=== PATIENT | female | born 1955 | race Caucasian/White ===

== ENCOUNTER → 2020-08-05 08:00 | Outpatient (CLI) | payer MEDICARE, OTHER, SELFPAY | PROVIDERS: Referring Provider Physician Assistant; Visit Provider Physician Assistant | DX: R47.02 Dysphasia (principal); R63.4 Abnormal weight loss; Z53.9 Procedure and treatment not carried out, unspecified reason ==

== ENCOUNTER → 2020-08-08 10:02 | Outpatient (CLI) | payer MEDICARE, OTHER, SELFPAY ==
--- NOTE | 2020-08-08 10:04 | DI.RAD.S_ITS ---
PROCEDURE: FL BARIUM SWALLOW W SPEECH INDICATIONS: DYSPHASIA COMPARISON: None. TECHNIQUE: Examination was conducted in conjunction with speech pathology per standard protocol. In the lateral projection, filming was performed of the patient swallowing. AP projection filming may also be performed with patient swallowing. COMPARISON: FINDINGS: Function: The oral preparatory phase appears normal, with proper containment. The subsequent oral propulsive phase, pharyngeal phase, and esophageal phase of swallowing also appear normal with all proffered substances. No laryngotracheal penetration or aspiration. Pooling was noted in the vallecula and piriform sinuses which was not completely cleared with repeat swallows. Morphology: No cricopharyngeal bar is identified. No cervical esophageal webs. No Zenker's diverticulum. No strictures. IMPRESSION: 1. Bilateral vallecula and piriform sinus pooling not completely cleared with Cristi swallows. 2. No laryngotracheal penetration or aspiration. Dictated by: Lisy Artis MD, PhD on 08/08/2020 at 12:14 Approved by: Lisy Artis MD, PhD on 08/08/2020 at 12:15
--- NOTE | 2020-08-08 16:11 | ST.SWALLOW ---
Visit Care Team Role Provider Type Carolyn Duran PA-C Attending Provider Non-Staff Primary Care Provider Referring Provider Specialty: Nursing [address]: [address] [place] [address], [id number] Email: Modified Barium Swallow Study FURNISHINGS CONSERVATOR Modified Barium Swallow Study Start: 08/08/20 14:20 Freq: Status: Active Protocol: Document 08/08/20 14:20 LL (Rec: 08/08/20 14:25 LL [id number]) Modified Barium Swallow Study Total Time Visit Start Time 10:30 Visit Stop Time 11:10 Total Visit Minutes 40 Visit Information Insurance Information [facility] Referral Referring Physician Carolyn Duran PA-C Reason for Referral Dysphagia and weight loss Setting Setting Outpatient Care Patient Information Identification Type Name,Date of ,ID Card Patient History Tata Watson is a 65-year -old female, who was seen for an outpatient Modified Barium Swallow Study (MBSS) per [facility] order due to concerns for dysphagia. Unable to obtain detailed medical history prior to exam. Per patient report, PMHx significant for GERD / reflux, weight loss, anxiety, and dysphagia. Patient denied any respiratory concerns, head /neck cancer, head/neck surgery, or neurological disorder / disease. Patient reported history of GERD / reflux with corrective surgery (unable to identify specific surgery) around 15 years ago. Patient reported difficulty swallowing pills, low PO intake, weight loss (20 lbs in less than 2 months), and occasional coughing / throat clearing with PO. Patient reported that she currently consumes a modified diet to ease swallowing difficulty (e. g., mechanical soft diet). Patient presented with a strained vocal quality and reported that she received speech therapy (date unknown) to improve vocal quality. Patient reported decreased thyroid levels over the last several months as well. Subjective Observations Patient arrived on time and unaccompanied for this study. Patient alert, oriented x 4, and agreeable to participate in MBSS this care date. Patient overtly anxious and reported increased anxiety over the last several months, requiring medication to alleviate symptoms. Patient Positioning Position View Lat-A/P Imaging Lateral View Textures Administered Trials Presented Thin Liquid via Cup,Thin Liquid via Straw,[place] Liquid via Cup,Honey Liquid via Spoon,Pudding Thick Liquid via Spoon,Dysphagia Advanced Textures,Regular Textures Oral Phase Source: MBSIMP (TM) (C) Bolus Specific Scoring Grid Lip Closure WFL Tongue Control During Bolus Hold WFL Bolus Prep/Mastication WFL Bolus Transport/Lingual Motion WFL A/P Lingual Propulsion Delay No Oral Residue WFL Residue Clearing WFL Nasal Regurgitation No Additional Oral Phase Observations Adequate labial seal with no anterior loss or difficulty with labial acceptance visualized across all consistencies. Adequate oral bolus containment visualized with 10mL of thin liquid barium with bolus hold. Trace oral residue of contrast observed post-swallow with thin liquids. Minimal oral residue with thicker bolus consistencies, which cleared with thin liquid wash. One occurrence of regurgitation with reswallow of remaining vallecular residue post- swallow with regular solid trial. Adequate mastication pattern visualized with dysphagia mechanical and regular solid trial. Pharyngeal Phase Source: MBSIMP (TM) (C) Bolus Specific Scoring Grid Delayed Initiation of Pharyngeal Swallow No Soft Palate Elevation WFL Tongue Base Strength/Range of Motion WFL Residue Along the Tongue Base Yes: Mild - cleared with sequential dry swallows Clearance of Residue Along Tongue Base WFL Laryngeal Elevation Mild Impairment Anterior Hyoid Movement Mild Impairment Epiglottic Range of Motion Mild Impairment Vallecular Residue Yes: Minimal with thin liquids . Mild with thicker consistencies. Clearance of Vallecular Residue Mild Impairment Laryngeal Vestibular Closure WFL Pharyngeal Stripping Wave Mild Impairment Pharyngeal Contraction Mild Impairment Posterior Pharyngeal Wall Residue Yes: Mild residue - cleared with sequential dry swallows Clearance of Posterior Pharyngeal Wall Minimal Impairment Residue Upper Esophageal Sphincter Opening WFL Residue in the Pyriform Sinuses Yes: Mild - minimally cleared with sequential dry swallows Clearance of Residue in the Pyriform Mild Impairment Sinuses Esophageal Clearance Upright Position Mild Impairment Pharyngoesophageal Backflow Observed Yes: Intermittently. History of GERD / reflux Additional Pharyngeal Phase Observations Timely trigger of the pharyngeal swallow, as determined by the location of the head of the bolus at the moment of the initial hyoid burst. Pharyngeal triggered occurred at the level of the valleculae across all consistencies with pooling to pyriforms after the initial swallow with thin liquids. High laryngeal carriage visualized. Diminished pharyngeal stripping wave ( lateral and AP view) visualized with all consistencies. Visualized posterior pharyngeal wall, pyriform, and vallecular residue post-swallow increasing with thicker consistencies. Decreased laryngeal elevation and excursion resulting in incomplete epiglottic inversion and increased pharyngeal residue post- swallow, decreasing airway protection after the swallow. Incomplete epiglottic inversion across all consistencies. Decreased epiglottic inversion visualized with thicker bolus consistencies resulting in at least 15% of bolus remaining at the level of the valleculae post-swallow. Patient completed 2 dry swallows with minimal clearance of pharyngeal residue. Visualized increased clearance of thicker bolus consistencies after thin liquid wash. No penetration or aspiration observed across all consistencies. Visualized one cricopharyngeal bar between C4 -5 and one osteophyte between C5-6. A/P View Textures Administered Trials Presented Thin Liquid via Cup,Barium Tablet A/P View Observations Esophageal Function Poor Motility,Reverse Peristalsis Esophageal Clearance Upright Position Mild Impairment Additional Observations Unable to assess barium tablet in AP view. Patient reported that barium tablet was too large to swallow, however, attempted to swallow tablet via thin water and in pureed barium with no success. Visualized esophageal dysmotility and reverse peristalsis with thin liquid barium. Clinical Impressions Dysphagia Type Mild pharyngeal dysphagia Findings The patient currently presents with a functional oral swallow phase and mild pharyngeal dysphagia characterized by decreased laryngeal elevation, decreased laryngeal excursion, incomplete epiglottic inversion, diminished pharyngeal stripping wave, mild pharyngeal residue post- swallow, and inability to completely clear all bolus consistencies with use of strategies. The patient is a mild aspiration risk due to above listed deficits. Risk mitigated given adherence to diet recommendations and PO precautions. FURNISHINGS CONSERVATOR reviewed MBSS results in detail and recommended patient consume a mechanical soft solid (baseline diet per patient and patient's ) and thin liquid diet with use of small bites/sips, upright for all PO intake, GERD precautions, effortful swallow , alternate bites/sips, medications as tolerated, and 2-3 dry swallows after every bite / sip to clear remaining pharyngeal residue after initial swallow. FURNISHINGS CONSERVATOR recommended outpatient speech therapy to receive additional dysphagia education / training and further assessment of patient's vocal fold functioning to determine appropriate treatment goals to improve patient's vocal quality. FURNISHINGS CONSERVATOR reviewed and demonstrated several vocal hygiene strategies with patient to increase understanding and carryover of strategies. Patient verbalized understanding of education / training. Patient reported that she has several upcoming appointments to address additional health concerns, but would reach out in the future to begin speech therapy. Rehabilitation Potential Good Patient Appropriate for Therapy Yes: Recommend outpatient and/ or home health speech therapy Recommendations Diet Liquids Order Thin Diet Order Mechanical Soft Medication Recommendation As Tolerated,Whole,Whole in Carrier Aspiration Precautions Recommended Precautions Upright at 90 Degrees,Small Bites/Sips,Effortful Swallow, Double Swallow Treatment Plan Therapy Recommendations Compensatory Strategy Education,GERD/Vocal Hygiene Education Recommended Referrals Primary Care Physician,ENT Consult Compensatory Strategies Recommendations Sitting Upright (90 deg), Double Swallow,Small Bites and Sips,Alternate Liquids/Solids Additional Compensatory Strategies GERD precautions, effortful Recommended swallow Additional Recommendations/Comments - ENT consult to visualize anatomy and physiology of the vocal folds given patient's strained vocal quality and poor vocal hygiene behaviors ( e.g., coughing, throat clearing). - PCP to continue to follow their plan of care (POC).
== END ==
PROVIDERS: PCP Physician Assistant; Referring Provider Physician Assistant; Visit Provider Physician Assistant
DX: R47.02 Dysphasia (principal)
CPT/HCPCS: 74230; 92526; 92611

== ENCOUNTER 2021-11-10 14:25 | Emergency (ER) | payer MEDICARE, OTHER, SELFPAY ==
[2021-11-10 14:30] VITALS: BP 127/66; PULSE 56; RESP 20; TEMP 37.2; O2SAT 100
--- NOTE | 2021-11-10 17:35 | ED_ITS ---
HPI - Eye Problem <Ene Doran DO - Last Filed: 11/11/21 19:40> General Chief complaint: Eye Problems Stated complaint: has shingles, getting into eye Time Seen by Provider: 11/10/21 17:20 Source: patient Mode of arrival: Ambulatory Limitations: no limitations Related Data Allergies Allergy/AdvReac Type Severity Reaction Status Date / Time guaifenesin [From ENTEX T] Allergy Severe THROAT Verified 11/10/21 17:41 SWELLING pseudoephedrine Allergy Severe THROAT Verified 11/10/21 17:41 [From ENTEX T] SWELLING Sulfa (Sulfonamide Allergy Severe THROAT Verified 11/10/21 17:41 Antibiotics) SWELLING [SULFA (SULFONAMIDE ANTIBIOTICS)] <Shahzad Hull DO - Last Filed: 11/10/21 19:12> History of Present Illness HPI Narrative: 66-year-old female nonsmoker with noncontributory medical history presents with her at the request of the walk-in clinic for evaluation of shingles on the forehead and concern given it's proximity to her eye. She has no vision change or eye pain. She is taking antivirals as prescribed. She has an eye doctor in [place] but was unable to see them today as a had no open visits. She was seen and evaluated initially with a painful rash on the right side of her forehead and seen by her primary care provider on Wednesday and has been treated appropriately. She has no chest pain or shortness of breath. She is not dizzy nor weak or lightheaded. Review of Systems <Ene Doran DO - Last Filed: 11/11/21 19:40> Review of Systems ROS Unobtainable: All systems reviewed & are unremarkable except as noted in HPI and below <Shahzad Hull DO - Last Filed: 11/10/21 19:12> Review of Systems Narrative: GENERAL: Denies chills, fatigue, malaise, fever, sweats. HEENT: Denies sinus pain, ear pain, sore throat, difficulty swallowing, dizziness. RESPIRATORY: Denies dyspnea, cough, wheezing, hemoptysis, sputum. CARDIOVASCULAR: Denies chest pain, palpitations, orthopnea, edema, GASTROINTESTINAL: Denies nausea, vomiting, abdominal pain, diarrhea, constipation, melena. : Denies dysuria, frequency, incontinence, hematuria, urinary retention. MUSCULOSKELETAL: denies weakness, joint pain, or bony pain SKIN: See HPI NEUROLOGIC: Denies weakness, headache, numbness, change in speech, confusion, seizures, incoordination. PSYCHIATRIC: No concerning psychosocial issues. 12 point review of systems is negative except for those stated above Exam <Ene Doran DO - Last Filed: 11/11/21 19:40> Initial Vital Signs Initial Vital Signs: Vital Signs Temperature 98.9 F 11/10/21 14:30 Pulse Rate 56 L 11/10/21 14:30 Respiratory Rate 20 11/10/21 14:30 Blood Pressure 127/66 11/10/21 14:30 Pulse Oximetry 100 11/10/21 14:30 <Shahzad Hull, DO - Last Filed: 11/10/21 19:12> Narrative Exam Narrative: GENERAL: [66] year old patient appears stated age. Well-developed patient, in mild distress. HEAD: Painful red rash on much of the right side of the forehead with clear fluid-filled vesicles extending down to the upper lid and medial canthus, consistent with shingles. EYES: Pupils equal round and reactive. Extraocular motions intact. No scleral injection or watering, no scleral edema noted. Visualized under Wood's lamp in no fluorescein uptake consistent with saucer ophthalmicus. ENT: Nose without bleeding, purulent drainage. Throat without erythema, tonsillar hypertrophy or exudate. Airway patent. NECK: Trachea midline. Non tender CARDIOVASCULAR: Regular rate and rhythm without murmurs, gallops, or rubs. RESPIRATORY: Clear to auscultation. Breath sounds equal bilaterally. No wheezes, rales, or rhonchi. GASTROINTESTINAL: Abdomen soft, non-tender, nondistended. EXTREMITIES: No edema or joint tenderness. BACK: Nontender without deformity or crepitance. No flank tenderness. NEURO: AOx3. SKIN: No rash or erythema of visible areas Initial Vital Signs Initial Vital Signs: Vital Signs Temperature 98.9 F 11/10/21 14:30 Pulse Rate 56 L 11/10/21 14:30 Respiratory Rate 20 11/10/21 14:30 Blood Pressure 127/66 11/10/21 14:30 Pulse Oximetry 100 11/10/21 14:30 Course <Ene Doran DO - Last Filed: 11/11/21 19:40> Orders Ordered: Discontinued Medications Fluorescein Sodium (Fluorescein 1 Mg Strip) 1 mg EYE-BOTH NOW ONE Stop: 11/10/21 17:36 Last Admin: 11/10/21 17:41 Dose: 1 mg Documented by: WALDO Proparacaine HCl (Proparacaine 0.5% Ophth Hailey) 1 drops EYE-RIGHT NOW ONE Stop: 11/10/21 17:36 Last Admin: 11/10/21 17:41 Dose: 1 dose Documented by: WALDO Vital Signs Vital signs: Vital Signs - 8 hr 11/10/21 14:30 11/10/21 18:49 Temperature 98.9 F Pulse Rate 56 L 57 L Respiratory Rate 20 18 Blood Pressure 127/66 218/88 H Pulse Oximetry 100 99 <Shahzad Hull DO - Last Filed: 11/10/21 19:12> Orders Ordered: Discontinued Medications Fluorescein Sodium (Fluorescein 1 Mg Strip) 1 mg EYE-BOTH NOW ONE Stop: 11/10/21 17:36 Last Admin: 11/10/21 17:41 Dose: 1 mg Documented by: WALDO Proparacaine HCl (Proparacaine 0.5% Ophth Hailey) 1 drops EYE-RIGHT NOW ONE Stop: 11/10/21 17:36 Last Admin: 11/10/21 17:41 Dose: 1 dose Documented by: WALDO Vital Signs Vital signs: Vital Signs - 8 hr 11/10/21 14:30 11/10/21 18:49 Temperature 98.9 F Pulse Rate 56 L 57 L Respiratory Rate 20 18 Blood Pressure 127/66 218/88 H Pulse Oximetry 100 99 <Shahzad Hull DO - Last Filed: 11/10/21 19:12> MDM Narrative Medical decision making narrative: Patient referred for evaluation of possible zoster ophthalmicus. She does have impressive painful rash on her forehead, but thankfully history and physical exam would suggest against the likelihood of ocular involvement. She is given extensive return precautions including strict recommendations for follow-up tomorrow with her eye doctor, and if not she has been given contact information for our ophthalmology group. She has had questions answered to her apparent satisfaction Discharge Plan Departure Patient Disposition: Home Clinical Impression: Acute pain associated with herpes zoster Instructions: DI for Shingles Activity Restrictions/Additional Instructions: *You have been diagnosed with [facial shingles. As we discussed, there is no evidence that infection is involving your eye. *What to do: *Please continue to take your regular medications as directed. [ ] New medication prescriptions sent to your pharmacy: [ ] [ ] New medication written as a paper prescription [x ] No new medications given *Please follow up with your eye doctor tomorrow, call for an appointment. Let them know you were seen in the Emergency Department and that we ask that you be seen in follow up. We will electronically transmit a record of today's note if your PCP is in our system As we discussed I have included contact information for our eye doctors in the event that you have a difficult time getting in with your doctor tomorrow *If you do not have a primary care provider please contact the [facility] Resource line at [phone]. They will ask some questions about your medical history and help get you set up with a doctor in the community. *Return to Emergency Department if you should have any new, worsening or concerning symptoms, such as vision change, increased eye pain, blurring or other concerning symptoms Referrals: Raymundo Crowell MD [Physician] - Davon Vizcarra MD [Primary Care Provider] - ED Sign-out <Ene Doran, - Last Filed: 11/11/21 19:40> Cosign ED Attending Bryceature Attestation: Patient not seen by myself. Chart accidentally opened under my name.
[2021-11-10] MEDS: FLUORESCEIN 1 MG STRIP EYE-BOTH (17:41)
[2021-11-10] MEDS: PROPARACAINE 0.5% OPHTH SOL 1 DROPS EYE-RIGHT (17:41)
--- NOTE | 2021-11-10 18:41 | PC.NURSE ---
Pt states her PCP diagnosed shingles on r-side of her face 11/07/21. Pt denies visual changes, feels the eye lid and surrounding tissue is more inflamed today than yesterday. Pain 12/02. Pt received shingles vaccine 2014.
[2021-11-10 18:49] VITALS: BP 218/88; PULSE 57; RESP 18; O2SAT 99
--- NOTE | 2021-11-10 18:56 | PC.NURSE ---
HTN during today's visit. Provider aware. Pt takes BP at home, BP is regularly 140s/80s and is complaint with her BP meds. Advised to continue checking BP as usual and return if HTN persists.
[2021-11-10 19:05] VITALS: BP 218/88; PULSE 58; RESP 18; O2SAT 100
== END 2021-11-10 19:05 | disposition home or self-care (01) ==
PROVIDERS: Emergency Provider Emergency Medicine; PCP Internal Medicine
DX: B02.8 Zoster with other complications (principal)
CPT/HCPCS: 99282